=== PATIENT | male | born 2000 | race Caucasian/White ===

== ENCOUNTER 2018-09-17 15:52 | Observation (INO) | payer OTHER ==
--- NOTE | 2018-09-17 17:26 | ED ---
Head Injury - HPI Summary HPI Summary: This patient is a 17 year old M presenting to [facility] accompanied by his roommate with a chief complaint of VAN and confusion since 13:00. The patient says he thinks his symptoms began after he had a syncopal episode in the bathroom and hit his head on the sink. The patient notes he has had some trouble remembering things that happened in the last 24 hours but he feels like his penitentiary memory has not been affected. The patient is unsure of LOC. The patients roommate notes that the patient left to go to the bathroom for 5-10 minutes came back and took a nap for about 15 minutes and then told him that he had fallen in the bathroom after he woke up. Per triage note, patient admits to EtOH and marijuana use in the last 24 hours. The patient rates the pain 0/10 in severity. Symptoms aggravated by nothing. Symptoms alleviated by nothing. - History Of Current Complaint Chief Complaint: EDHeadInjury Stated Complaint: POSS CONCUSSION PER PT Time Seen by Provider: 09/17/18 15:57 Hx Obtained From: Patient Mechanism Of Injury: Fall From A Standing Position Onset/Duration: Started Hours Ago, Still Present Onset of Pain: Hours Severity Currently: Mild Severity Initially: Mild Pain Intensity: 0 Aggravating Factor(s): Other: - nothing Alleviating Factor(s): Other: - nothing Associated Signs And Symptoms: Confusion, Memory Loss - Allergies/Home Medications Allergies/Adverse Reactions: Allergies Allergy/AdvReac Type Severity Reaction Status Date / Time No Known Allergies Allergy Verified 09/17/18 15:57 Home Medications: Home Medications NK [No Home Medications Reported] 09/17/18 [History Confirmed 09/17/18] PMH/Surg Hx/FS Hx/Imm Hx Opthamlomology History: Denies: Hx Legally Blind EENT History: Denies: Hx Deafness Infectious Disease History: No Infectious Disease History: Denies: Traveled Outside the [place] in Last 30 Days - Family History Known Family History: Negative: Seizure Disorder - Social History Alcohol Use: Weekly Substance Use Type: Reports: Marijuana Smoking Status (MU): Light Every Day Tobacco Smoker Review of Systems Negative: Fever Negative: Epistaxis Negative: Vomiting Negative: Rash Neurological: Other - confusion, memory loss Positive: Headache All Other Systems Reviewed And Are Negative: Yes Physical Exam - Summary Physical Exam Summary: Appearance: The patient is well-nourished in no acute distress and in no acute pain. Skin: The skin is warm and dry and skin color reflects adequate perfusion. HEENT: The head is normocephalic and atraumatic. The pupils are equal and reactive. The conjunctivae are clear and without drainage. Nares are patent and without drainage. Mouth reveals moist mucous membranes and the throat is without erythema and exudate. The external ears are intact. The ear canals are patent and without drainage. The tympanic membranes are intact. Neck: The neck is supple with full range of motion and non-tender. There are no carotid bruits. There is no neck vein distension. Respiratory: Chest is non-tender. Lungs are clear to auscultation and breath sounds are symmetrical and equal. Cardiovascular: Heart is regular rate and rhythm. There is no murmur or rub auscultated. There is no peripheral edema and pulses are symmetrical and equal. Abdomen: The abdomen is soft and non-tender. There are normal bowel sounds heard in all four quadrants and there is no organomegaly palpated. Musculoskeletal: There is no back tenderness noted. Extremities are non-tender with full range of motion. There is good capillary refill. There is no peripheral edema or calf tenderness elicited. Neurological: Patient is alert and oriented to person, place and time. The patient has symmetrical motor strength in all four extremities. Cranial nerves are grossly intact. Deep tendon reflexes are symmetrical and equal in all four extremities. GCS 15 Psychiatric: The patient has an appropriate affect and does not exhibit any anxiety or depression. Triage Information Reviewed: Yes Vital Signs On Initial Exam: Initial Vitals Temp Pulse Resp BP Pulse Ox 98 F 61 14 142/75 98 09/17/18 15:57 09/17/18 15:57 09/17/18 15:57 09/17/18 15:57 09/17/18 15:57 Vital Signs Reviewed: Yes Diagnostics - Vital Signs Vital Signs Temp Pulse Resp BP Pulse Ox 09/17/18 15:57 98 F 61 14 142/75 98 - Laboratory Lab Statement: Any lab studies that have been ordered have been reviewed, and results considered in the medical decision making process. - CT CT Brain CT Interpretation Completed By: ED Physician - Dr. Parks, pending official report Summary of CT Findings: No acute process Head Injury Course/Dx - Diagnoses Provider Diagnoses: Concussion Discharge - Sign-Out/Discharge Documenting (check all that apply): Patient Departure - discharge home Patient Received Moderate/Deep Sedation with Procedure: No - Discharge Plan Condition: Stable Disposition: HOME Patient Education Materials: Concussion (ED) Forms: *School Release Referrals: Care [facility] [Outside] - 1 Day Additional Instructions: Follow up with your primary care physician in 1-2 days. Return to the emergency with any new or worsening symptoms. - Attestation Statements Document Initiated by Scribe: Yes Documenting Scribe: Carolyn Baltazar Provider For Whom Scribe is Documenting (Include Credential): Moses Parks MD Scribe Attestation: Carolyn Ga, scribed for Moses Parks MD on 09/17/18 at [id number].
--- NOTE | 2018-09-17 19:30 | ED ---
Progress - Progress Note Progress Note: RECEIVING SIGN-OUT FROM DR. PARKS AT SHIFT CHANGE PENDING CONSULT WITH RADIOLOGY , OFFICIAL BRAIN CT REPORT. Pt is a 17 y/o M presenting s/p unwitnessed fall with head trauma c/o VAN and confusion onset 1300. Pt confirms ETOH and drug use prior to fall. - Results/Orders Results/Orders: BRAIN CT as read by radiologist: IMPRESSION: 1. Low lying cerebellar tonsils approximately 5 mm below the level of Foramen magnum which is indeterminate for Chiari I malformation. If clinically indicated, further evaluation with MRI may be considered. 2. Two small adjacent hypodense foci along the left parasagittal frontal cortex, best seen on image 22 series 2, which may cortical calcification vs artifact and less likely acute hemorrhage. No edema. ED provider has reviewed this report. C-SPINE CT as read by radiologist: IMPRESSION: No acute findings. ED provider has reviewed this report. Re-Evaluation - Re-Evaluation 1 Re-Evaluation Time: 19:30 Comment: Discussing Brain CT with patient. Reviewed hx with patient, which is as per Dr. Parks. Pt is a neurologically intact. 2 Re-Evaluation Time: 19:53 Comment: Discussing the consult with Dr. Nogueira, neuro surg, with patient, and plans for admission. Pt is agreeable to this. Course/Dx - Course Course Of Treatment: RECEIVING SIGN-OUT FROM DR. PARKS AT SHIFT CHANGE PENDING CONSULT WITH RADIOLOGY, OFFICIAL BRAIN CT REPORT. Pt is a 17 y/o M presenting s /p unwitnessed fall with head trauma c/o VAN and confusion onset 1300. Pt confirms ETOH and drug use prior to fall. Brain CT impression: 1. Low lying cerebellar tonsils approximately 5 mm below the level of Foramen magnum which is indeterminate for Chiari I malformation. If clinically indicated, further evaluation with MRI may be considered. 2. Two small adjacent hypodense foci along the left parasagittal frontal cortex, best seen on image 22 series 2, which may cortical calcification vs artifact and less likely acute hemorrhage. No edema. C-SPINE CT shows no acute findings. Reviewed hx with patient, pretty much as per Dr. Parks. Neurologically intact. Consulted with Dr. Nogueira, neuro surgery, who feels there is a traumatic contusion and subarachnoid hemorrhage. Recommends admission overnight and repeat scan in the AM. Consulted with Dr. Doshi, hospitalist, who will admit patient. - Diagnoses Provider Diagnoses: Concussion, Intraparenchymal hemorrhage of brain Discharge - Sign-Out/Discharge Documenting (check all that apply): Patient Departure - ADMIT, Receiving Sign- Out Receiving patient FROM: Moses Parks Patient Received Moderate/Deep Sedation with Procedure: No - Discharge Plan Condition: Fair Disposition: ADMITTED TO [facility] - Billing Disposition and Condition Condition: FAIR Disposition: Admitted to [facility] - Attestation Statements Document Initiated by Scribe: Yes Documenting Scribe: Lindy Coulter Provider For Whom Scribe is Documenting (Include Credential): Dr. Moses Cuadra MD Scribe Attestation: I, Lindy Coulter, scribed for Dr. Moses Cuadra MD on 09/18/18 at 0242. Scribe Documentation Reviewed: Yes Provider Attestation: The documentation as recorded by the eliibeLindy accurately reflects the service I personally performed and the decisions made by me, Dr. Moses Cuadra MD Status of Scribe Document: Viewed Consult Consult: 1944: Consult with Dr. Nogueira, neuro surg He does think there is a traumatic contusion and subarachnoid hemorrhage. Recommends admission overnight and repeat scan in the AM. 1957: Consult with Dr. Doshi, hospitalist Will admit patient.
[2018-09-17] MEDS ORDERED: Acetaminophen TAB* 325 MG PO PRN (20:28)
[2018-09-17] MEDS ORDERED: Ondansetron INJ* 2 MG/ML VIAL IV PRN (20:28)
--- NOTE | 2018-09-18 00:25 | HP ---
CC: [facility] * ADMISSION HISTORY AND PHYSICAL: DATE OF ADMISSION: 09/17/18 PRIMARY CARE PROVIDER: [facility]. MY ATTENDING WHILE IN THE HOSPITAL: Marcelino Doshi MD * (DICTATED BY [employer]) CHIEF COMPLAINT: Fall, amnesia. HISTORY OF PRESENT ILLNESS: Mr. Johnson is a 17-year-old male with no significant past medical history who over the holiday weakened endorses to drinking a significant amount of alcohol on Tuesday. He is unable to quantify the amount because of poor memory surrounding this whole weekend. The patient, however, was found acting strangely by his roommates, repeating himself and having a very little memory. On Tuesday morning, the patient had pain around his restorationist and was believed to have fallen and hit his head. The patient was brought into the emergency department, found to have a possible small subdural hematoma. The patient states that he drinks weekly, does not drink daily, that he uses marijuana daily. He has never had any symptoms like this before. He has no history of abnormal bleeding. No history of concussions or passing out. The patient has no more pain. The patient has no focal weakness or changes in his vision. No numbness or tingling due to the concern for subdural hematoma. We are asked to evaluate the patient's admission to in the hospital. The patient has had no recent illnesses, takes no medications. PAST MEDICAL HISTORY: None. PAST SURGICAL HISTORY: None. MEDICATIONS: None. ALLERGIES: Seasonal. FAMILY HISTORY: The patient's parents both have high blood pressure and diabetes mellitus. The patient has no known family history of intracranial bleeding, positive kidney disease, or family members in need of dialysis at young age. SOCIAL HISTORY: The patient does not smoke tobacco. The patient drinks alcohol weekly, occasionally binging. The patient uses marijuana daily. The patient is a [employer] student. The patient is not , has no children. The patient's surrogate decision maker will be his mother, Rosa Elena Johnson. REVIEW OF SYSTEMS: A 14-point review of systems was reviewed with the patient and negative except as above in the HPI. PHYSICAL EXAMINATION GENERAL: The patient is a 17-year-old male who appears stated age, sitting comfortably in bed, in no acute distress. VITAL SIGNS: At the time of evaluation, temperature 98.5, pulse rate 55, respiratory rate 15, oxygen saturation 100% on room air, blood pressure 137/67. HEENT: Head: Normocephalic, atraumatic. Sclerae anicteric. No conjunctival injection. Nasal mucosa dry. Oral mucosa dry. No pharyngeal erythema, discharge, or exudate. NECK: Supple, nontender. No lymphadenopathy. No carotid bruits auscultated. No JVD. RESPIRATORY: Clear to auscultation bilaterally. No wheezes, rales or rhonchi. Good air exchange bilaterally. CARDIAC: Regular rate and rhythm. No clicks, murmurs, gallops, or rubs. Pulses are 2+ in the bilateral dorsalis pedis, posterior tibialis, and radial areas. ABDOMEN: Soft, nontender, nondistended. Bowel sounds present and normoactive in all 4 quadrants. No hepatosplenomegaly. No abdominal bruits auscultated. No hepatojugular reflux. GENITOURINARY: No suprapubic or CVA tenderness. NEUROLOGIC: Cranial nerves II through XII intact. No focal deficits. Strength 5/5 bilaterally in the upper and lower extremities distally and proximally. Reflexes 1+ in the bilateral biceps, patellar and Achilles areas. Babinski is downgoing bilaterally. SKIN: Clean, dry, and intact. No rash. DIAGNOSTIC STUDIES/LAB DATA: Laboratory data: None. Studies: Brain CT read as low-lying cerebellar tonsils approximately 5 mm below the foramen magnum versus indeterminate for Chiari I malformation, clinically indicated further evaluation may be considered. Two small adjacent hyperdense foci in the left parasagittal frontal cortex, well seen on image 22, stage 2, which may be calcification versus artifact, less likely acute hemorrhage. No edema. ASSESSMENT AND PLAN: Impression: Mr. Johnson is a 17-year-old male with no past medical history who in the course of drinking alcohol, fell, hit his head and has anterior and retrograde amnesia and the possibility of a small subdural hematoma on brain imaging. The patient admitted to the hospital for observation , neuro checks, repeat head imaging and neurosurgical consultation. 1. Fall, head trauma, subdural hematoma. The patient was drinking alcohol and fell. The patient does not believe he was inebriated at the time of this fall. The patient was brought to the hospital by his roommates for acting strangely with poor ability for form new memories. The patient's CT head with a small subdural hematoma. There is no concern based on his imaging for this being aneurysmal bleed or a spontaneous bleed, in fact it may be artifact. The patient's case was discussed by the ED provider with the neurosurgeon who recommended admission for monitoring and repeat head CT in the morning. They will see him in consultation. The patient will be having neuro checks q.4. The patient will not have any blood thinners. The patient will have a CT Cervical Spine which is pending. The patient has no bleeding diathesis. 2. DVT prophylaxis: The patient will ambulate ad shila. 3. FEN: The patient will have a regular unrestricted diet and there is no indication for fluids. 4. Disposition. The patient is made observation to the hospital. TIME SPENT: Approximately 40 minutes spent on the admission of this patient, 20 of which was spent [id number] with the patient obtaining history, physical and treatment plan. This plan was discussed with my attending, Dr. Marcelino Doshi, and he is in agreement. [employer] [id number]/[facility] #: [id number] LEONCIO
[2018-09-18 07:13] LABS: ABS Basophils 0 10^3/ul (0-0.2); ABS Eosinophils 0.1 10^3/ul (0-0.6); ABS Lymphocytes 2.5 10^3/ul (1.0-4.8); ABS Monocytes 0.7 10^3/ul (0-0.8); ABS Neutrophils 3.8 10^3/ul (1.5-7.7); ABS Nucleated RBC 0 10^3/ul; Eosinophil % 0.9 %; Hematocrit 44 % (36-46); Hemoglobin 14.6 g/dL (14.0-18.0); Lymphocyte % 35.6 %; Mean Corpuscular HGB Conc 33 g/dL (31-36); Mean Corpuscular Hemoglobin 29 pg (27-31); Mean Corpuscular Volume 90 fL (80-94); Mean Platelet Volume 8.8 fL (7.4-10.4); Nucleated Red Blood Cells % 0.1; Platelet Count 165 10^3/uL (150-450); Red Blood Count 4.97 10^6 /uL (4.18-5.48); Red Cell Distribution Width 14 % (10.5-15); White Blood Count 7.1 10^3/uL (3.5-10.8)
--- NOTE | 2018-09-18 10:25 | PN ---
Subjective Date of Service: 09/18/18 Objective Active Medications: Acetaminophen (Tylenol Tab*) 650 mg PO Q6H PRN PRN Reason: FEVER/PAIN Ondansetron HCl (Zofran Inj*) 4 mg IV Q6H PRN PRN Reason: NAUSEA Vital Signs - 8 hr 09/18/18 09/18/18 03:05 07:43 Temperature 97.8 F 97.6 F Pulse Rate 43 55 Respiratory 16 16 Rate Blood Pressure 128/68 131/76 (mmHg) O2 Sat by Pulse 100 100 Oximetry Oxygen Devices in Use Now: None Appearance: Comfortable, NAD Eyes: No Scleral Icterus Ears/Nose/Mouth/Throat: Clear Oropharnyx, Mucous Membranes Moist Neck: NL Appearance and Movements; NL JVP Respiratory: Symmetrical Chest Expansion and Respiratory Effort, Clear to Auscultation Cardiovascular: NL Sounds; No Murmurs; No JVD, RRR, No Edema Abdominal: NL Sounds; No Tenderness; No Distention Lymphatic: No Cervical Adenopathy Extremities: No Edema Skin: No Rash or Ulcers Neurological: Alert and Oriented x 3, NL Sensation, NL Muscle Strength and Tone , - - Cranial nerves grossly intact Nutrition: Taking PO's Result Diagrams: 09/18/18 07:02 Assess/Plan/Problems-Billing Assessment:
--- NOTE | 2018-09-18 13:55 | CONS ---
CC: [facility]* CONSULTATION REPORT: DATE OF CONSULT: 09/18/18 PRIMARY CARE PROVIDER: [facility]. REASON FOR CONSULT: Altered mental status after a fall. HISTORY OF PRESENT ILLNESS: Mr. Johnson is a very nice 17-year-old gentleman who is a current student at [employer], who has no significant past medical or surgical history. He notes to drinking significant amount of alcohol and smoking pot on a daily basis. When questioned, he states that he drinks up to 10 alcoholic drinks per weekend. Denies any history of DTs or seizures. He has no family history of seizures. He has no history of prior head trauma or concussions. He has no history of meningitis and no history of issues that he is aware of. Yesterday, after 1 p.m., his friends noticed that he was acting unusually. The patient has poor memory from around 1 p.m. until around 6 p.m. when he started to gain his memory back. He reports having a heavy day of partying the day before on 09/16/18. He states that he smoked a significant amount of pot that day, but denies drinking that evening. He had been drinking prior though. He states that he went to bed very late at around 3 or 4 in the morning. He had been playing video games. He woke up around noon and went and took a shower. He came back to his room. He states that he went back to the bathroom at some point to clean his bowl and the next thing he remembers was being in the ER. Per his report, his friends told him that at around 1 o'clock they saw him and he was acting very unusually, was having to ask the same question multiple times, was repeating. He has no memory of the event. There was no witnessed seizure activity, bladder or bowel incontinence, or tongue biting. After about 6 p.m. in the ER, he started to regain his memory and now he feels that he has a fairly good recall of events up until 1 p.m. and events after around 6 p.m. He still has a window of about 5 hours where he cannot remember what happened. He notes some mild soreness on the right side of his head in the parietal area. No other pains or aches. He denies any photophobia, any neck pain, any phonophobias and in fact he was listening to music when I walked in. He denies any excessive somnolence. He denies any neck pain. He denies any headache. He is otherwise feeling back to his normal self, except for feeling slightly "dazed," which he describes in the right side of his head. He did have several scans in the ER: 1. CT scan of the head without contrast. The films were reviewed and there is subtle evidence of hypodensities, the impression: a. Low-lying cerebellar tonsils approximately 5 mm below the foramen magnum, which is indeterminate for Chiari I malformation. b. Two small adjacent hypodense foci along the left parasagittal frontal cortex, best seen on image 22, series 2, which may represent cortical calcification versus artifact and less likely acute hemorrhage. No edema was appreciated. 2. Cervical spine CT, impression: No acute findings. 3. He had another CT performed this morning: CT of the head without contrast, comparison to 09/17/18 films reviewed, impression: No CT evidence for intracranial hemorrhage. Negative exam. Overnight, the patient has done well, has felt more clear-headed and is wanting to go home. He has been walking around in his room. As noted, just some fullness in his right parietal head, but otherwise feels like he is back to his baseline and is not feeling confused or somnolent. He ate his breakfast without difficulty. There has been no nausea or vomiting. He has had appropriate behavior since being here. There has been no autonomic instability and he has not been agitated or confused overnight. He is anxious to get home. He has finals next week. PAST MEDICAL HISTORY: Negative. PAST SURGICAL HISTORY: Negative. MEDICATIONS AT HOME: None. ALLERGIES: Seasonal allergies. No drug allergies. FAMILY HISTORY: He notes diabetes in his distant relatives and high blood pressure in his distant relatives. There is no family history of seizures or other neurologic disorders and no bleeding history in his family that he is aware of. SOCIAL HISTORY: As noted above, he drinks heavily intermittently, not daily. He smokes marijuana daily. He is a student at [employer]. Mother, Rosa Elena Johnson, is his surrogate decision maker. REVIEW OF SYSTEMS: His review of systems in 14-organ systems as noted above, otherwise negative. PHYSICAL EXAMINATION: Vital Signs: Afebrile, pulse of 68, respiratory rate of 13 to 20, pulse ox of 99% to 100% on room air, blood pressure 128/68 to 131/76 to 131/63. In general, he is a well-nourished, well-developed, tall gentleman, in no acute distress. He is lying in his bed with his head at approximately 45 degrees. He is listening to music with his headphones on. He is very calm and comfortable. He opens his eyes when I said his name and tapped him. He is pleasant, well dressed, well groomed. HEENT: He is normocephalic, atraumatic. There is an area of slight tenderness in the right parietal scalp. No obvious hematoma or swelling. His sclerae are anicteric. Mucous membranes are moist. Oropharynx is clear. Nares are patent. Neck is supple. No thyromegaly. No carotid bruits. No meningismus. Chest: Clear to auscultation bilaterally. Cardiovascular is regular rate and rhythm without murmurs, gallops, or rubs. Abdomen is nontender. Extremities: No clubbing, cyanosis, or edema. His skin is warm and dry. On neurologic exam, he is awake , alert, and oriented x3. His speech is fluent. There is no dysarthria. Repetition is intact. Recall of recent and remote events is intact except for a period from about 1 p.m. yesterday to 6 p.m. yesterday. His speech is fluent. Cranial Nerves: Pupils are equally round and reactive to light and accommodation. Extraocular muscles are intact. Visual soliz are full to confrontation. Face is symmetric. Facial sensation is intact bilaterally. Hearing is intact bilaterally. Palate raises symmetrically. Tongue is midline. Sternocleidomastoid and trapezius are 5/5. Motor exam is 5/5 throughout with good tone and bulk. No drift. No focal weakness. Sensation intact to light touch and pinprick in all 4 extremities. No deficits. DTRs are 2+ and symmetric at the biceps, triceps, brachioradialis, patellar, equivocal Babinski's. [id number] and rapid alternating movements are intact without tremors, no past-pointing or dysmetria noted. No evidence of ataxia. His gait is normal, normal base and stance, steady. DIAGNOSTIC STUDIES/LAB DATA: Lab report includes a CBC with diff that was normal. Imaging: As noted above. ASSESSMENT AND PLAN: Mr. Johnson is a 17-year-old gentleman with no significant past medical or surgical history, who is a college student at [employer], reports heavy but not daily alcohol use and daily marijuana use. Denies any prior history of head trauma or concussions and denies any family history or personal history of seizure or risk factors for seizure. He was apparently partying this weekend, the day before admission; noted to smoking a large amount of marijuana, stayed up very late until 3 to 4 in the morning, went to bed on Tuesday and woke up around noon, went and took a shower, went back to the bathroom and apparently fell and hit his head, although this was not witnessed. No tongue biting, no bowel or bladder incontinence. His friends stated that he was acting "funny." He was brought to the ER for further evaluation. In the ER, CT of the head showed possibility of a small subdural and Neurosurgery was consulted, who recommended observation overnight. CT this morning appears negative. He has done well overnight, is back to his baseline and has good recall except for a period between 1 and 6 yesterday after the fall. At this point, I suspect that he likely suffered a concussion. It is unclear why he fell. Certainly, given his history of alcohol use which is intermittent in nature, seizure is in the differential. He denies any other illicit substance use, but does state to drinking intermittently heavily. It is somewhat unclear how much alcohol he actually has had this last weekend. In addition, given the fact that he had smoked large amounts of marijuana, it is possible that he was altered from the medication, slipped and fell. In any event, I suspect that he fell and hit his head and postconcussional some confusion afterwards, noted by his friends, brought to the ER. My suspicion for a subdural hematoma based on the images is low. Repeat CT scan shows no evidence of worsening bleeding or other contusions. I think at this point he is okay for discharge from my standpoint with the understanding that he return back to the ER with any new symptoms. Certainly, given his alcohol history, he is at increased risk for seizure. We discussed the risks of seizure with alcohol. In addition, we discussed the fact that both alcohol and marijuana are illegal and that he should not do these. In addition, these could affect the recovery from his concussion and delay the effects. I advised him not to drink or smoke marijuana under any circumstances. I also told him to be very careful and avoid any further head trauma as multiple concussions can cause long -term sequelae. I told him that he could expect some possible concentration difficulties and headaches over the next week or so as he recovers, although he seems to be back to baseline and has no real significant complaints at this time. I would not proceed with any additional workup at this time. With no risk factors for seizure and no witnessed events, my suspicion for seizures is very low. If this should happen again, I would recommend getting an outpatient EEG and having him followup with Neurology. Certainly, this is a risk of provoked seizures, but we discussed long-term alcohol cessation and no marijuana use. I remain available for any new issues or concerns, otherwise I will sign of for now. Feel free to have him follow up with me as an outpatient in a month or so to look for resolution of his symptoms. Have him return to the ER immediately should he develop any new symptoms including seizure-like activity. Thank you for the opportunity to participate in his care. [id number]/[facility] #: [id number] LEONCIO
[2018-09-18 15:18] VITALS: BP 121/61
--- NOTE | 2018-09-18 22:41 | CONS ---
CONSULTATION NOTE: DATE OF CONSULT: 09/18/18 HISTORY OF PRESENT ILLNESS: The patient is a very pleasant 17-year-old gentleman who is a [employer] student without significant past medical history, who was admitted from the emergency room because of CT scan finding consistent with a possible bifrontal small contusions. The patient reports that he was partying over the weekend and he did smoke marijuana and consumed some alcohol. He reports that yesterday he had a significant amount of marijuana, and after he woke up, he went to the shower and to the bathroom and presumably fell. He felt some sensitivity in his scalp on the right side. He returned to his room and his roommate realized that the patient had some confusion and perseveration. For this reason, he reported to the emergency room where a CT scan of the brain revealed suspicion for a very small hemorrhagic contusion bifrontally. The patient was admitted to the hospital for observation by the hospitalist team. He reports that he has no headache. He has no seizures. He denies any neck or back pain. He denies any weakness, numbness, or tingling of extremities. He denies any difficulty with his ability to ambulate. He denies any urinary or GI incontinence. He reports that he remembers every thing except a small period around the episode of possible fall. The patient is a [employer] student in [employer]. PAST MEDICAL HISTORY: Negative. PAST SURGICAL HISTORY: Negative. MEDICATIONS: Negative. ALLERGIES: Seasonal. FAMILY HISTORY: High blood pressure and diabetes. SOCIAL HISTORY: Tobacco negative. Alcohol positive weekly and occasionally binging. Recreational drug use of marijuana daily. PHYSICAL EXAM: The patient is not in acute distress. He is awake, alert, oriented x3. His pupils are equal and reactive. Cranial nerves II through XII are grossly intact. Motor 5/5 in all extremities. No pronator drift. Sensory grossly intact to light touch. Deep tendon reflexes +1 bilaterally. No clonus , no Babinski. Kumar is negative. Straight-leg raise negative on supine position. The patient has no tenderness to palpation to thoracic or lumbar spine. He has good range of motion of cervical spine. DIAGNOSTIC STUDIES/LAB DATA: The patient had a CT scan of the brain at admission revealing suspicion for very small bifrontal contusions, rule out mass effect. The patient had a repeat CT scan this morning to rule out evidence of intracranial hemorrhage. The patient had also CT scan of the cervical spine that did not reveal any evidence of fracture or subluxation. ASSESSMENT: This is a very pleasant 17-year-old gentleman with a possible fall with closed head injury, possible post concussion syndrome. PLAN: The patient at this point has done extremely well. No need for neurosurgical intervention at this time. I cautioned the patient to avoid any alcoholic use or any recreational drug use and avoid any future falls or injuries, emphasizing the importance and the risks with second impact injury including malignant cerebral edema in this. The patient was advised to be avoiding any activities of pertinent risk and exercise seizure precautions. The patient was also kindly evaluated by Neurology. We will be happy to reevaluate the patient in approximately 1 month in our office with a new CT scan of the brain. Thank you for allowing us to participate in the care of this patient. Please do not hesitate to contact our office in case you have any further questions or concerns regarding the care of this patient. [id number]/[facility] #: [id number] LEONCIO
--- NOTE | 2018-09-19 05:33 | DS ---
CC: [facility]; Dr. Nogueira, Neurosurgery; Dr. Hannah , Neurology * DISCHARGE SUMMARY: DATE OF ADMISSION: 09/17/18 DATE OF DISCHARGE: 09/18/18 PRIMARY CARE PROVIDER: [facility]. ATTENDING PHYSICIAN: Dr. Morrison * (dictated by Yana Borjas NP) PRIMARY DIAGNOSES: 1. Fall, head trauma, subdural hematoma. 2. Substance abuse. CONSULTATIONS WHILE IN THE HOSPITAL: 1. Dr. Nogueira, Neurosurgery 2. Dr. Hannah, Neurology. PROCEDURES WHILE IN THE HOSPITAL: No procedures. STUDIES WHILE IN THE HOSPITAL: 1. Brain CT: Impression: Obtained 09/17/18. Low-lying cerebellar tonsil approximately 5 mm below the level of the foramen magnum, which is indeterminate for Chiari malformation, is clinically indicated further evaluation with MRI may be considered. Two small adjacent hypodense foci along the left parasagittal frontal cortex best seen on image 22, series 2, which may be cortical calcification versus artifact and less likely acute hemorrhage. No edema. 2. Cervical spine CT: Impression: No acute findings. 3. Brain CT: Impression: Obtained 09/18/18. No acute evidence of intracranial hemorrhage. Negative exam. DISCHARGE HOME MEDICATIONS: New home medications: No new home medications. Continued home medications: The patient is not on any home medications. Changed or discontinued home medications: Once again, the patient is not on any home medications. HISTORY OF PRESENT ILLNESS/HOSPITAL COURSE: Mr. Johnson is a 17-year-old male with no significant past medical history, who presented to the emergency department on 09/17/18 with his roommates due to acting strangely, fall, head trauma. Please see history and physical dictated by FRANCOIS Gordon, for a complete summary of events leading up to this hospitalization, but in short, while in the emergency room, the patient admitted to alcohol and marijuana use and fall. CT revealed a possible small subdural hematoma. Neurosurgery was consulted, who recommended admission for monitoring and repeat CT in the morning. The patient also had a CT of the spine, which is unremarkable given trauma. The patient was admitted to the medical floor for further evaluation. While inpatient, the patient had q.4 hour neuro checks, which remained unremarkable. The patient was evaluated by Neurosurgery and Neurology today. The patient denies any neurological symptoms or headache. The patient is stable for discharge to home. Vital signs: Temp 97.7, HR 55, RR 16, O2 saturation 100% on room air, BP 121/61. REVIEW OF SYSTEMS: The patient denies fatigue, anorexia. Cardiac: The patient denies chest pain, shortness of breath, palpitations. Respiratory: The patient denies shortness of breath, cough, wheezing. HEENT: The patient denies sore throat or dysphagia. Abdomen: The patient denies abdominal pain, nausea, vomiting. : The patient denies dysuria. Musculoskeletal: The patient denies joint pain. Skin: The patient denies rashes. Neuro: The patient denies dizziness, headache, weakness, visual changes. PHYSICAL EXAMINATION: General: Mr. Johnson is a 17-year-old male, who is sitting in bed. Appears to be in no acute distress. Appears stated age. Vital Signs: As above. HEENT: Oral mucosa is moist without lesions. Posterior pharynx is clear. EOMs intact. Cardiac: S1, S2 present. Regular rate and rhythm. No murmurs, rubs, or gallops. Respiratory: Lungs are clear to auscultation. ood aeration. No wheezes, rales, or rhonchi. Abdomen: Soft, nontender. Bowel sounds x4. Extremities: No clubbing or cyanosis. No edema. Pedal pulses 2+ bilaterally. Musculoskeletal: No pain or deformities. Neuro: Cranial nerves II through XII grossly intact. Sensation intact. Coordination intact. Strength is 5/5 in upper and lower extremities bilaterally. DISCHARGE PLAN/FOLLOWUP: 1. Fall, head trauma, subdural hematoma; the patient was cleared by Neurosurgery and Neurology today for discharge. The patient should follow up with Dr. Nogueira from Neurosurgery in 4 weeks. The patient should up follow up with Dr. Jeremi Hannah with Neurology in 4 to 8 weeks. The patient should follow up with either of these providers sooner if any new or worsening symptoms or any syncopal episodes. I have contacted [facility] with patient's approval and scheduled the patient a followup with them on 09/22/18. The patient should keep the followup for reassessment. The patient was educated at length by this writer producer, Dr. Nogueira, Dr. Hannah, and nursing staff to refrain from drug abuse and alcohol use as this is detrimental to his health and if he would have additional trauma to his head that the results could be significant including . The patient stated understanding. 2. Followup: As mentioned above, the patient should follow up with Dr. Nogueira in [address] Nogueira at this time, he will have a repeat CT. The patient should follow up with Dr. Hannah in 4 to 8 weeks. The patient should follow up with [facility] as scheduled on 09/22/18. 3. Education: The patient was educated at length about signs and symptoms of new or worsening condition, when to return to the emergency department. The patient stated understanding. This is a summarized report of a complex medical history and hospital stay. For further details, please see the entire medical record. TIME SPENT: Approximately 40 minutes was spent on this discharge, greater than half the time was spent [id number] with the patient discussing discharge plans and instructions. YANA BORJAS NP [id number]/[facility] #: [id number] LEONC[place]
== END 2018-09-18 16:00 | disposition home or self-care (01) ==
LOC: ED 15:52 → MED 20:28
PROVIDERS: ADMIT Internal Medicine; ATTEND Student in an Organized Health Care Education/Training Program
DX: S06.5X9A Traumatic subdural hemorrhage with loss of consciousness of unspecified duration, initial encounter (principal); F19.10 Other psychoactive substance abuse, uncomplicated; F17.210 Nicotine dependence, cigarettes, uncomplicated; F12.10 Cannabis abuse, uncomplicated; W19.XXXA Unspecified fall, initial encounter; R51 Headache; Y92.9 Unspecified place or not applicable
CPT/HCPCS: 36415; 70450; 72125; 85025; 96374; 99283